=== PATIENT | male | born 1970 | race Caucasian/White ===

== ENCOUNTER 2023-05-31 03:36 | Inpatient (IN) ==
[2023-05-31] MEDS ORDERED: Lactated Ringers 1000 ml BAG 1,000 ML IV ONE ×2 (03:51→04:21)
[2023-05-31] MEDS ORDERED: Midazolam 5 mg/5 ml VIAL 1 mg/ml 5 ml VIAL (5 mg) IV SLOW PU ONE (03:51)
[2023-05-31] MEDS ORDERED: Midazolam 10 mg/10 ml VIAL 1 mg/ml 10 ml VIAL (10 mg) IV SLOW PU ONE ×4 (03:52→04:19)
[2023-05-31] MEDS ORDERED: Propofol 10 mg/ml 100 ML BTL 1,000 MG/100 ML BTL ONE (04:01)
[2023-05-31] MEDS ORDERED: Rocuronium 50 mg VIAL 10 mg/ml 5 ml VIAL (50 mg) IV ONE (04:01)
[2023-05-31] MEDS ORDERED: Etomidate 40 mg/20 ml (2 MG/ML) 20 ml VIAL (40 mg) ONE (04:01)
[2023-05-31] MEDS ORDERED: Etomidate 20 mg/10 ml 2 MG/ML 10 ml VIAL IV ONE (04:01)
[2023-05-31] MEDS ORDERED: Rocuronium 50 mg VIAL 10 mg/ml 5 ml VIAL (50 mg) ONE ×2 (04:02→04:04)
[2023-05-31 04:03] LABS: Venous Bicarbonate HCO3 20.7 mmol/L (24-28)
[2023-05-31 04:07] LABS: ABS Lymphocytes 0.9 10^3/uL (1.0-4.8); ABS Monocytes 0.2 10^3/uL (0.0-1.1); ABS Neutrophils 9.1 10^3/uL (1.5-7.6); ABS Nucleated RBC 0.03 10^3/ul; Eosinophil % 0.1 %; Hemoglobin 15.1 g/dL (13.2-16.3); Lymphocyte % 8.4 %; Mean Corpuscular Hemoglobin 30.8 pg (27-33); Mean Corpuscular Hgb Conc 34.3 g/dL (31-36); Mean Corpuscular Volume 89.7 fL (80-97); Nucleated Red Blood Cells % 0.3 /100 WBC (0.0-0.4); Platelet Count 350 10^3/uL (150-450); Red Blood Count 4.91 10^6/uL (4.06-5.63); Red Cell Distribution Width 13.2 % (12-17); White Blood Count 10.2 10^3/uL (3.6-10.2)
[2023-05-31] MEDS ORDERED: Midazolam 5 mg/ml concentrated 5 mg/ml 1 ml VIAL ONE (04:08)
[2023-05-31 04:10] LABS: INR 0.93 (0.83-1.13)
[2023-05-31 04:20] LABS: ALT 18 U/L (7-52); AST 23 U/L (13-39); Albumin 4.8 g/dL (3.2-5.2); Albumin/Globulin Ratio 1.5 (1-3); Alkaline Phosphatase 50 U/L (35-149); Anion Gap 7 mmol/L (2-16); Blood Urea Nitrogen 9 mg/dL (6-24); CO2 Carbon Dioxide 23 mmol/L (22-32); Calcium 9.1 mg/dL (8.6-10.3); Chloride 111 mmol/L (101-111); Creatine Kinase 176 U/L (10-223); Creatinine, Serum 1.04 mg/dL (0.67-1.17); Globulin 3.2 g/dL (2-4); Glucose 122 mg/dL (70-100); Potassium 4.9 mmol/L (3.5-5.0); Sodium 141 mmol/L (135-145); eGFR CKD-EPI 86.9 (>60)
[2023-05-31 04:29] LABS: Acetaminophen < 15 mcg/mL; Alcohol, S 181 mg/dL (<13); Salicylate < 2.50 mg/dL (<30)
[2023-05-31] MEDS ORDERED: Iohexol 350 (CONTRAST) 500 ML MDV IV ONE (04:29)
[2023-05-31] MEDS ORDERED: Propofol 10 mg/ml 100 ML BTL 1,000 MG/100 ML BTL IV SCH ×2 (05:00→05:14)
[2023-05-31 05:09] LABS: Urine Appearance Cloudy; Urine Bilirubin Negative (Negative); Urine Blood Negative (Negative); Urine Color Yellow; Urine Glucose Negative (Negative); Urine Ketones Negative (Negative); Urine Nitrite Negative (Negative); Urine Protein Negative (Negative); Urine Specific Gravity 1.006 (1.002-1.030); Urine Urobilinogen Negative (Negative)
[2023-05-31] MEDS ORDERED: HYDROmorphone 1 MG/1 ML SYRINGE IV ONE (05:19)
[2023-05-31 05:38] LABS: Urine Benzodiazepine Screen None Detected (None Detect); Urine Buprenorphine Screen None Detected (None Detect); Urine Cannabinoids Screen Presumptive Positive (None Detect); Urine Fentanyl Screen None Detected (None Detect); Urine Hydrocodone Screen None Detected (None Detect); Urine Opiates Screen None Detected (None Detect)
[2023-05-31 05:40] LABS: PCO2 Arterial 40 mmHg (35-45); PO2 Arterial 95 mmHg (80-100)
[2023-05-31] MEDS ORDERED: Enoxaparin 40 MG/0.4 ML SYR SUBCUT SCH (06:00)
[2023-05-31] MEDS ORDERED: Lactated Ringers 1000 ml BAG 1,000 ML IV SCH (07:00)
[2023-05-31 08:33] LABS: Hematocrit 39.8 % (38-53); Mean Corpuscular Hemoglobin 31.3 pg (27-33); Mean Corpuscular Hgb Conc 35.1 g/dL (31-36); Mean Platelet Volume 7.8 fL (7.5-11.2); Platelet Count 253 10^3/uL (150-450); Red Blood Count 4.48 10^6/uL (4.06-5.63); White Blood Count 9.1 10^3/uL (3.6-10.2)
[2023-05-31 08:42] LABS: INR 0.96 (0.83-1.13)
[2023-05-31 08:50] LABS: Calcium 8.1 mg/dL (8.6-10.3); Magnesium 2.1 mg/dL (1.9-2.7); Total Bilirubin 0.9 mg/dL (0.2-1.0)
[2023-05-31 08:57] LABS: Albumin/Globulin Ratio 1.5 (1-3); Creatinine, Serum 0.91 mg/dL (0.67-1.17); Globulin 2.6 g/dL (2-4); Phosphorus 3.8 mg/dL (2.5-5.0); Total Protein 6.6 g/dL (6.4-8.9)
[2023-05-31] MEDS ORDERED: Pantoprazole VIAL 40 MG VIAL IV SCH (10:00)
[2023-05-31] MEDS: Chlorhexidine MOUTHWASH 0.12% 15 ML UDC TOPICAL SCH ×2 (12:05→14:43)
[2023-05-31 16:22] VITALS: BP 126/83
== END 2023-05-31 17:20 | disposition home or self-care (01) | DRG 918 ==
LOC: ED 03:36 → EDHOLD 05:24 → ICU 06:43
PROVIDERS: ADMIT Internal Medicine; ATTEND Internal Medicine